=== PATIENT | male | born 1960 | race Caucasian/White ===

== ENCOUNTER 2018-10-11 08:41 | Day surgery (SDC) | payer BC ==
[2018-10-10 11:57] VITALS: BMI 27.1
[2018-10-11 10:34] VITALS: TEMP 97.5
[2018-10-11 11:25] VITALS: BP 104/66; PULSE 49
== END 2018-10-11 11:27 | disposition home or self-care (01) ==
LOC: JASU-ENDO 08:41
PROVIDERS: ATTEND Internal Medicine Gastroenterology
PROC: 0DJD8ZZ Inspection of Lower Intestinal Tract, Via Natural or Artificial Opening Endoscopic (ICD-10-PCS; principal; 2018-10-11 09:45)
DX: Z12.11 Encounter for screening for malignant neoplasm of colon (principal); K64.8 Other hemorrhoids; K57.30 Diverticulosis of large intestine without perforation or abscess without bleeding